=== PATIENT | male | born 1980 | race Caucasian/White ===

== ENCOUNTER 2019-01-22 18:08 | Emergency (ER) | payer BC, OTHER ==
[~2019-01-22] VITALS: Ht 175.3 cm; Wt 90.7 kg
[2019-01-22 18:39] LABS: ABSOLUTE NEUTROPHILS 7.2 thou/uL (1.4-8.2); BASOPHILS 0.1 % (0.0-2.0); EOSINOPHILS 1.4 % (0.0-3.0); HEMATOCRIT 47.7 % (42.0-52.0); HEMOGLOBIN 16.7 gm/dL (14.0-18.0); LYMPHOCYTES 21.8 % (24.0-44.0); MCH 31.6 pg (26.0-34.0); MCV 90.2 fL (80.0-100.0); MONOCYTES 5.7 % (1.0-8.0); PLATELET COUNT 198 thou/uL (150-400); RBC 5.29 mil/uL (4.50-6.00); RDW 12.3 % (10.5-14.5); WBC 10.2 thou/uL (4.0-11.0)
[2019-01-22 18:39] LABS: URINE BILIRUBIN NEGATIVE (Negative); URINE BLOOD NEGATIVE (Negative); URINE CLARITY CLEAR; URINE COLOR YELLOW; URINE GLUCOSE-RANDOM* 3+ (Negative); URINE KETONES NEGATIVE (Negative); URINE LEUKOCYTES-REFLEX NEGATIVE (Negative); URINE NITRITE-REFLEX NEGATIVE (Negative); URINE PROTEIN (DIPSTICK) 1+ (Negative); URINE SPECIFIC GRAVITY >= 1.030 (1.005-1.035); URINE UROBILINOGEN 0.2 E.U./dl (0.2-1.0)
[2019-01-22 18:56] LABS: HYALINE CASTS 0-3 Few /LPF (None Seen); MUCUS 4-6 Moderate strn/LPF (None Seen); SQUAMOUS 4-10 Moderate /LPF (0-3)
[2019-01-22 18:57] LABS: BACTERIA-REFLEX 1-9 Few /HPF (None Seen); CRYSTALS None Seen /LPF (None Seen); URINE RBC 0-2 Rare /HPF (0-2); URINE WBC-REFLEX 0-5 Rare /HPF (0-5)
[2019-01-22 19:04] LABS: ANION GAP 12 mmol/L (7-16); BUN 9 mg/dL (7-18); CALCIUM 8.5 mg/dL (8.5-10.1); CHLORIDE 98 mmol/L (98-107); CO2 24 mmol/L (21-32); GLUCOSE 392 mg/dL (74-106); POTASSIUM 3.4 mmol/L (3.5-5.1); SODIUM 134 mmol/L (136-145)
[2019-01-22 19:15] LABS: ALBUMIN 3.8 g/dL (3.4-5.0); LIPASE 297 U/L (73-393); SGOT 29 U/L (15-37); SGPT 34 U/L (30-65); TOTAL BILIRUBIN 0.4 mg/dL (<0.1-1.0); TROPONIN-I <0.06 ng/mL (<0.06)
[2019-01-22 22:17] VITALS: BP 135/96
--- NOTE | 2019-01-23 08:37 | EKG ---
[place] [address] [facility] [employer] [place] [address] ELECTROCARDIOGRAM REPORT Name: LYSSA DONIS Room #: [facility] SERVICESOsvaldo#: [id number] ������������������ Admission: 01/22/19 ������������������ Attend Phys: Discharge: 01/22/19 ������������������ Date of : 76 Report #: [id number] ����������������������������������������������������������������� [id number] THIS REPORT FOR: //name// [facility] ED Test Date: 2019-01-22 Test Time: 18:21:25 Pat Name: LYSSA DONIS Department: Room: Gender: Tool Grinder Operator External: JLAMBERTZ : 1980 Requested By: Aura Lara Order Number: [id number] MD: Christopher Mcgrath Measurements Intervals [place] Rate: 130 P: 51 CA: 117 QRS: 75 QRSD: 98 T: -16 QT: 326 QTc: 480 Interpretive Statements Sinus tachycardia RSR' in V1 or V2, right VCD Borderline prolonged QT interval No previous ECG available for comparison Electronically Signed On 01-23-2019 8:37:45 CDT by Christopher Mcgrath [email or web address] ��������������������������������������������� <ELECTRONICALLY SIGNED> ���������������������������������������� By: Christopher Mcgrath MD, [facility] ��������������������������������������������� 01/23/19 0837 1821 20 Christopher Mcgrath MD, FACC /EPI
== END 2019-01-22 22:19 | disposition home or self-care (01) ==
LOC: ER 18:08
PROVIDERS: Physician Assistant
DX: R11.2 Nausea with vomiting, unspecified (principal); R42 Dizziness and giddiness; R06.02 Shortness of breath; F10.10 Alcohol abuse, uncomplicated; F17.210 Nicotine dependence, cigarettes, uncomplicated